=== PATIENT | female | born 1955 | race Caucasian/White ===

== ENCOUNTER → 2023-11-08 | Day surgery (SDC) | payer OTHER ==
[2023-11-05 13:23] LABS: Hematocrit 41.3 % (36.0-45.0); Lymphocytes % 26.4 % (15.3-44.8); MPV 8.6 fL (7.6-11.3); Platelets 235 thou/uL (152-406); RBC Red Blood Cell Count 4.44 M/uL (3.86-4.86)
[2023-11-05 13:26] LABS: Protime INR 0.95
--- NOTE | 2023-11-06 13:43 | EKG ---
Test Date: 2023-11-05 Test Time: 14:05:17 Insurance Application Investigator: MAKEDA MEASUREMENT RESULTS: Intervals: Rate: 48 MA: 162 QRSD: 80 QT: 444 QTc: 396 [place]: P: 73 MA: 162 QRS: 53 T: 67 INTERPRETIVE STATEMENTS: Marked sinus bradycardia Abnormal ECG Compared to ECG 03/14/2007 16:00:47 Sinus rhythm no longer present Electronically Signed On 11-06-23 13:39:42 GUIDANCE COUNSELOR by Haris Linton
[~2023-11-08] MED LIST: CEFAZOLIN SODIUM 1 GM/VIAL ONE; FENTANYL CITR 100 MCG/2 ML ONE; LIDOCAINE 2% MPF 5 ML VIAL ONE; LIDOCAINE HCL/EPINEPHRINE 20 ML MDV ONE; LIDOCAINE JELLY 2% 5 ML SYRINGE TOP ONE; METHYLENE BLUE 1% 10 ML VIAL ONE; MIDAZOLAM HCL 2 MG/2 ML INJ ONE; ONDANSETRON 4 MG/2 ML VIAL ONE; ROCURONIUM 50 MG/5 ML VIAL IV ONE; Ringers Lactate 1,000 ML IV ONE; dexAMETHasone 4 MG/ML VIAL ONE; propofoL 200 MG/20 ML VIAL IV ONE
--- NOTE | 2023-11-08 17:48 | P.OP ---
Preoperative diagnosis: Rectovaginal Fistula Postoperative diagnosis: Rectovaginal Fistula Primary procedure: Exam under anesthesia Secondary procedure: Anoscopy Anesthesia: GETA Estimated blood loss: <5cc Specimen: none Findings: no fistula noted on this exam Complications: None Transferred to: Recovery Room Condition: Good
[2023-11-08 18:27] VITALS: O2SAT 94
[2023-11-08 18:30] VITALS: BP 158/73; TEMP 97.5
--- NOTE | 2023-11-08 19:11 | OP ---
Date of Procedure: 11/08/2023 Surgeon: Cody Esteban MD, Preoperative Diagnosis: Rectovaginal fistula. Postoperative Diagnosis: Rectovaginal fistula. Procedures Performed: 1.Exam under anesthesia. 2.Anoscopy. Anesthesia: General endotracheal. Estimated Blood Loss: 5 cc. Specimens: None. Findings: No fistula was noted on this exam. Complications: None. Disposition: The patient was transferred to recovery room in good condition. Co-surgeon: Dr. Cotto. Please see Dr. Cotto's note for full details regarding her aspect of t he operation. Procedure In Detail: The patient was prepped and draped in usual sterile fashion after adequate anes thesia was achieved. The patient remained in lithotomy position. Dr. Cotto performed her procedu re prior to my arrival into the operating room. As such, please see Dr. Cotto's note for full det ails regarding her aspect of the operation. Upon my entering, I performed a rigid anoscopy; however, the patient did have a significant stool burden at this point and as such, I switched to an anoscopy rather than rigid proctoscopy, removed some stool from the rectum and inspected and palpated the ano vaginal septum. At this point, there was a thickened ridge which is palpable on both sides consisten t with a fistula in this area near the anus approximately 2 cm from the anal verge. It appeared to b e below the dentate line or at the dentate line. It was difficult to palpate due to previous scar in the perianal area. There seemed to be some tightness consistent with a minimal stricture of the chay s at this point as well. I palpated the area and attempted using lacrimal probe to see if I could pa ss a small lacrimal probe through the fistula; however, I could not visualize it from the anal side. I palpated the anovaginal septum and could not palpate and pass a lacrimal probe at this point. Rat her than continuing to attempt pushing through this probe and causing additional damage, I opted to i rrigate the area and inspected the area 1 last time. No additional maneuvers were required. I place d a Gel-Foam soaked lidocaine in the anal vault, cleansed out the vaginal and anal vaults prior to th is, and discontinued the procedure. The patient tolerated the procedure well without evidence of com plication, transferred to PACU in good condition. All counts were correct at the end of the case. ULICES/KENYETTA Voice ID: [id number] Report ID: [id number]
--- NOTE | 2023-11-11 15:42 | OP ---
Date of Procedure: 11/08/2023 Surgeon: Lisette Cotto MD Preoperative Diagnoses: Suspected rectovaginal fistula, patient with history of anal cancer and urinary urgency. Postoperative Diagnoses: Suspected rectovaginal fistula, patient with history of anal cancer and urinary urgency. Procedures Performed: 1. Cystoureteroscopy. 2. Exam under anesthesia. Anesthesia: General with LMA. Specimens: No specimens. Complications: No complications. Drains: No drains. Estimated Blood Loss: 0. Findings: Distal 1/5 of the vaginal canal was closely visualized. There was a lesion that was raised, erythematous in the vaginal canal on rectovaginal exam. This was the area of possible rectovaginal fistula. Rest of the posterior wall, cervix, anterior vaginal brooks were all well visualized. No evidence of any fistula. No fistulous material. Fecal material was not noted on cystoscopy. No tumors, ulcerations. 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 Indications: Patient is a 68-year-old presented with history of anal cancer, status post chemoradiation and colostomy for diversion, which later has been reversed, presented with symptoms of the rectovaginal fistula, which was highly suspected. Patient is intolerant of her pelvic exam in the office. Also, has lower urinary tract symptoms like urgency and frequency. She was consented for an exam under anesthesia to confirm rectovaginal fistula and do pelvic exam and upper part of the vaginal canal, which was inaccessible due to patient's pain and intolerance. Cystoscopy was performed due to her urinary symptoms and given history of fistula. She was also coordinated with Dr. Esteban, who was going to do rigid sigmoidoscopy at the same time. Her Plavix was stopped 3 days before and plan was to restart the day following the procedure. Description Of Procedure: After informed consent was verified, patient was taken back to the OR, placed in a supine fashion on operating table. General anesthesia was given. She was placed in dorsal lithotomy position. No prep was needed. Betadine prep was done at the external meatus before cystoscopy was performed with 17-[place] sheath, 30-degree lens, normal saline. Urethra was well visualized, atrophic. No other lesions on examination of the bladder. There were telangiectasias in the base of the bladder consistent with radiation cystitis. No epithelial lesions, tumors or ulcerations, or foreign body. The base of the bladder and dome and lateral wall trigone were well visualized. Speculum was placed in the posterior wall. This was a Loyola speculum. Another small Loyola speculum placed in the anterior wall and systematically the anterior wall was examined from the external meatus to the anterior fornix. The cervix was well visualized. No evidence of any lesions here. The vaginal wall posteriorly was well visualized in the area of the posterior cul-de-sac and the rest of the vaginal epithelium appeared to be completely unremarkable until this lesion was seen 2 cm proximal to the raised red lesion. No clear fecal material was noted. However, on rectovaginal exam, this appeared to be a thickened area that could be a connection. Then distally, no other abnormalities were noted. Case was then handed over to Dr. Esteban and I completed and left the operating room. He was doing the rigid sigmoidoscopy. Please refer to his dictation. I spoke to her family member who waiting for her and discussed the findings of my procedures. She has a 1-week follow up with me. Instrument and sponge counts were correct at the end of my case. SIXTO/KENYETTA Voice ID: [id number] Report ID: [id number] MTDD
== END | disposition home or self-care (01) ==
LOC: OR 11:58
PROVIDERS: ATTEND Obstetrics & Gynecology
PROC: 0DJD8ZZ Inspection of Lower Intestinal Tract, Via Natural or Artificial Opening Endoscopic (ICD-10-PCS; 2023-11-08)
PROC: 0TJB8ZZ Inspection of Bladder, Via Natural or Artificial Opening Endoscopic (ICD-10-PCS; principal; 2023-11-08 14:30)
DX: N39.41 Urge incontinence (principal); F17.200 Nicotine dependence, unspecified, uncomplicated; I10 Essential (primary) hypertension; I73.9 Peripheral vascular disease, unspecified; Z87.440 Personal history of urinary (tract) infections; Z85.048 Personal history of other malignant neoplasm of rectum, rectosigmoid junction, and anus
CPT/HCPCS: 93005; 85025; 80048; 36415 ×2; 85610; 85730; 52351; 46600; J2704; J1100; J2001; J2250; J3010; J2405; J7120; J0690

== ENCOUNTER 2024-09-18 05:53 | Day surgery (SDC) | payer OTHER ==
[2024-09-15 15:27] LABS: Absolute Eosinophils 0.2 K/uL (0-0.5); Absolute Lymphocytes (CBC) 2.2 K/uL (0.7-4.9); Absolute Monocytes 0.8 K/uL (0.1-1.3); Absolute Neutrophil 4.7 K/uL (1.8-8.0); Basophils % 0.6 % (0-1.3); Eosinophils % 2.5 % (0-4.4); Hematocrit 40.2 % (36.0-45.0); Hemoglobin 13.4 g/dL (12.0-15.0); Lymphocytes % 27.8 % (15.3-44.8); MCH 32.2 pg (27.0-35.0); MCHC 33.3 g/dL (32.0-36.0); MCV 96.5 fL (80-100); MPV 8.7 fL (7.6-11.3); Neutrophils % 59.1 % (41.7-73.7); Platelets 288 thou/uL (152-406); RBC Red Blood Cell Count 4.16 M/uL (3.86-4.86); Red Cell Distribution Width 13.4 % (12.1-15.2)
[2024-09-15 15:30] LABS: PT Prothrombin Time 10.9 SECONDS (9.4-12.5); PTT, Activated Partial Thromb 34.9 SECONDS (24.3-36.9); Protime INR 0.97
[2024-09-15 15:40] LABS: Anion Gap 10.4 mEq/L (5.0-15.0); Potassium 5.4 mEq/L (3.5-5.1)
--- NOTE | 2024-09-16 12:52 | EKG ---
Test Date: 2024-09-15 Test Time: 15:25:38 [place] Operator: ARIES MEASUREMENT RESULTS: Intervals: Rate: 47 MS: 160 QRSD: 84 QT: 444 QTc: 392 [place]: P: 74 MS: 160 QRS: 44 T: 69 INTERPRETIVE STATEMENTS: Marked sinus bradycardia Abnormal ECG Compared to ECG 11/05/2023 14:05:17 No significant changes Electronically Signed On 09-16-24 12:49:16 CDT by Davi Chandler
[2024-09-18] MEDS ORDERED: Ringers Lactate 1,000 ML IV ONE (06:11)
[2024-09-18] MEDS ORDERED: dexAMETHasone 10 MG/ML VIAL ONE (06:33)
[2024-09-18] MEDS ORDERED: ONDANSETRON 4 MG/2 ML VIAL ONE (06:33)
[2024-09-18] MEDS ORDERED: LIDOCAINE 1% MPF 5 ML VIAL ONE (06:33)
[2024-09-18] MEDS ORDERED: propofoL 200 MG/20 ML VIAL IV ONE (06:35)
[2024-09-18] MEDS ORDERED: ROCURONIUM 50 MG/5 ML VIAL IV ONE (06:35)
[2024-09-18] MEDS ORDERED: FENTANYL CITR 100 MCG/2 ML ONE (06:35)
[2024-09-18] MEDS ORDERED: MIDAZOLAM HCL 2 MG/2 ML INJ ONE (06:36)
[2024-09-18] MEDS ORDERED: EPHEDRINE SULF 50 MG/ML VIAL ONE (07:32)
[2024-09-18] MEDS: CEFAZOLIN SODIUM 2 GM/VIAL ONE (07:35)
[2024-09-18] MEDS: LIDOCAINE HCL/EPINEPHRINE 20 ML MDV ONE (07:43)
[2024-09-18 09:52] VITALS: BP 96/43; TEMP 97; O2SAT 95
--- NOTE | 2024-09-18 12:46 | OP ---
Date of Procedure: 09/18/2024 Surgeon: Lisette Cotto MD Chain Builder: No assistants. Preoperative Diagnoses: Urge urinary incontinence and fecal incontinence. Procedures Performed: Full InterStim system implantation with incision and implantation of tined gini dripolar lead electrodes into the left S3 foramen under fluoroscopic guidance for needle placement, s ubcutaneous implantation of sacral nerve neurostimulator into the right buttock pocket by creating ri ght buttock pocket and electronic analysis and programming. Anesthesia: General endotracheal. Complications: No complications. Specimens: No specimens. Drains: No drains. Condition: Stable. Findings: The lead was placed on left S3 and the battery implant on the right buttock pocket. There was response of toe flexion on all leads and then manohar were seen on leads 1 and 3. Estimated Blood Loss: Minimal. Indications: The patient has significant urinary and fecal incontinence. Due to the reason that she has mixed urinary and fecal problems, she was offered the sacral nerve stimulation and after assessi ng her bladder function with urodynamics, bladder log on cystoscopy to rule out any tumors. Then she did an office percutaneous nerve evaluation, on which she was greater than 50% improved on fecal and urinary incontinence and was significantly excited to get a full stent system implantation understan ding all the benefits and risks and that long-term efficacy is 85%. Description Of Procedure: She was brought back to the OR, re-consented in the preoperative area with her [id number] by her side. Questions and answers were completed to her satisfaction. The patient was properly identified and taken back to the OR. General endotracheal anesthesia was gi rachelle while she was on her bed, then she was transferred to the OR bed in a prone position by the OR pr otocol. Pillows were placed under her lower abdomen to flatten the sacrum and under shins to allow t he toes to dangle freely. The patient was prepped with Betadine solution and draped in a sterile fas hion. The C-arm was draped and moved into AP position to provide fluoroscopic mapping of the sacral region which include marking out the sacral midline, SI joint, sciatic notches, medial foraminal borders, an d the sacral foramina. Head was turned to the lateral position and the image was taken from sacral p romontory to the coccyx. Surface markings were made 9 cm above the coccyx in the midline and then had 8 cm to 13 cm. Perpendi cular lines to the midline were drawn 2 cm on each side of the midline. 1% lidocaine with epinephrine was injected in the areas of the skin on both sides. Then, the foramen needle was introduced at 10.5 cm and 2 cm lateral to the midline. Then, S3 foramen was identified a nd penetrated. The depth of the foramen needle was confirmed and adjusted fluoroscopically. Proper needle position was confirmed by identification of plantar flexion of the great toe and minimal navas ws that were seen using the external test stimulator. The right S3 was first tried and the left S3. The response in left S3 was much more significant on both toes and manohar, but there was minimal be llow response on the right. A firm needle stylet was then removed and bidirectional guide was placed on the left side and confirm ed fluoroscopically. The foramen needle was removed. The incision was made peripheral to the direct ional guide through the fascial layer using an 11 blade. The lead introducer sheath with dilator was placed over the directional guide and then directed into the foramen to ensure the radiopaque marker of the lead. Introducer did not extend beyond anterior to the sacrum. The dilator was unlocked and removed along with the directional guide and the lead was then placed through the introducer sheath to the first white line. The position was checked fluoroscopically. The lead was then further intro duced until 3 electrodes were visible below the sacrum. Each electrode was tested with visualization of manohar and plantar flexion of the great toe. There was a great response on all leads for the pl stuart flexion of the toe and manohar seen on 1 and 3. After satisfactory positioning was confirmed, the introducer sheath was retracted and under continuous fluoroscopy, deploying the lead tines into t he parasacral tissue and an AP view was also taken and saved. Further incision was made in the subcutaneous tissue posterior to the iliac crest, lateral to the sac rum on the right side as the patient preferred a pocket on this side. Blunt dissection was performed until the gluteal fascia was identified and hemostasis was secured with the help of a Bovie. A suff icient pocket was created for the neurostimulator without creating an excessive space. The tunneling tool with straw was placed from the lead exit site subcutaneously to the incised pocket site and the tunneling tool was removed and the lead was fed through the straw and pulled out the pocket site. Lexx he lead was then passed of bodily fluids and dried. The lead was inserted into the InterStim II neur ostimulator and the metal bands were aligned. The blue lead tip clearly was well in the distal porti on of the neurostimulator head. A single set screw was tightened with a hex wrench. The neurostimulator was placed in the subcutaneous pocket and edge identification site placed upwards and the rest of the lead wined in an anticlockwise fashion. The programming head was then placed ov er the implanted neurostimulator in a sterile cover and ensure adequate lead connection. The paramet ers were within normal limits and impedances were confirmed as well and were within normal limits. The wounds were irrigated with antibiotic solution and water and closed with the help of 3-0 Vicryl i n a continuous running subcutaneous sutures and 4-0 Monocryl for continuous running subcuticular skin sutures. The lead site was closed with a simple 4-0 Monocryl suture. Counts were correct. Steri-S trips and gauze were placed through the incision. Estimated blood loss was less than 10. The patiselma medellin was transferred to the recovery room in stable condition and the clinician coordinate measuring machine programmer used the gene rator programmed. The patient did well. She was counseled on her task to do, timed emptying, and Ke gel to allow relaxation of the bladder as needed. She has a 3-week followup and programming will be readdressed at appropriate times. The patient and the [id number] were de-briefed before they were discharged. SIXTO/KENYETTA Voice ID: [id number] Report ID: [id number]
--- NOTE | 2024-09-18 13:02 | RAD REPORT ---
EXAM: Fluoroscopy use, Fluoroscopy <1 Hour HISTORY: SACRAL NEURO MODULATION COMPARISON: None FINDINGS: Multiple images were sent to PACS, during a fluoroscopically guided procedure. No radiologi st was involved in protocoling or performance of the study, and no radiologist was present for the duration of the procedure. No interpretation of the saved images will be provided. Total fluoroscopy time: 0.4 minutes. IMPRESSION: Documentation of fluoroscopy use as above.
== END 2024-09-18 10:11 | disposition home or self-care (01) ==
LOC: OR 05:53
PROVIDERS: ATTEND Obstetrics & Gynecology
PROC: 0JH73BZ Insertion of Single Array Stimulator Generator into Back Subcutaneous Tissue and Fascia, Percutaneous Approach (ICD-10-PCS; principal; 2024-09-18 07:00)
PROC: 01HY3MZ Insertion of Neurostimulator Lead into Peripheral Nerve, Percutaneous Approach (ICD-10-PCS; 2024-09-18 07:00)
DX: R39.15 Urgency of urination (principal); R15.9 Full incontinence of feces
CPT/HCPCS: 36415; 76000; 80048; 85025; 85610; 85730; 93005; C1767; C1778; J1100; J2003; J2250; J2405; J2704; J3010; J7120